=== PATIENT | female | born 1970 | race Native Hawaiian/Other Pacific Islander ===

== ENCOUNTER 2020-06-22 09:05 | Outpatient (CLI) | payer OTHER | END 2020-06-22 19:53 | disposition home or self-care (01) | LOC: MAMMO 09:05 | PROVIDERS: ATTEND Nurse Practitioner | DX: Z12.31 Encounter for screening mammogram for malignant neoplasm of breast (principal) ==

== ENCOUNTER 2020-10-27 11:56 | Outpatient (CLI) | payer OTHER | END 2020-10-27 20:35 | disposition home or self-care (01) | LOC: US 11:56 | PROVIDERS: ATTEND Registered Nurse | DX: R10.11 Right upper quadrant pain (principal) ==

== ENCOUNTER 2020-11-14 15:44 | Outpatient (CLI) | payer OTHER | END 2020-11-14 19:57 | disposition home or self-care (01) | LOC: RAD 15:44 | PROVIDERS: ATTEND Registered Nurse | DX: M25.562 Pain in left knee (principal); M54.42 Lumbago with sciatica, left side; M25.552 Pain in left hip ==

== ENCOUNTER 2020-11-18 08:05 | Outpatient (CLI) | payer OTHER | END 2020-11-18 22:16 | disposition home or self-care (01) | LOC: NM 08:05 | PROVIDERS: ATTEND Registered Nurse | DX: R10.11 Right upper quadrant pain (principal) | CPT/HCPCS: A9537 ==

== ENCOUNTER 2022-04-30 08:48 | Outpatient (CLI) | payer OTHER | END 2022-04-30 19:32 | disposition home or self-care (01) | LOC: NM 08:48 | PROVIDERS: ATTEND Nurse Practitioner Family | DX: Z12.31 Encounter for screening mammogram for malignant neoplasm of breast (principal); R74.8 Abnormal levels of other serum enzymes; E07.89 Other specified disorders of thyroid | CPT/HCPCS: A9516 ==

== ENCOUNTER 2022-08-03 08:28 | Outpatient (CLI) | payer OTHER | END 2022-08-03 19:49 | disposition home or self-care (01) | LOC: CT 08:28 | PROVIDERS: ATTEND Nurse Practitioner Family | DX: R10.9 Unspecified abdominal pain (principal) | CPT/HCPCS: Q9963 ==